=== PATIENT | male | born 1950 | race Caucasian/White ===

== ENCOUNTER 2016-08-07 11:47 | Outpatient (CLI) | payer OTHER ==
[2016-08-07 12:06] LABS: BASOPHILS # (AUTO) 0.1 K/uL (0-0.2); EOSINOPHILS # (AUTO) 0.7 K/ul (0.0-0.7); EOSINOPHILS % (AUTO) 9.4 % (0.0-7.0); HEMATOCRIT 45.9 % (42.0-52.0); HEMOGLOBIN 15.9 g/dl (14.0-18.0); IMMATURE GRANULOCYTE % (AUTO) 0.1 % (0.0-5.0); LYMPHOCYTES # (AUTO) 2.8 K/uL (0.60-3.4); LYMPHOCYTES % (AUTO) 38.6 (10.0-50.0); MEAN CORPUSCULAR HGB CONC 34.6 (31.8-35.4); MEAN CORPUSCULAR VOLUME 89.5 fl (80.0-94.0); MONOCYTES # (AUTO) 0.8 K/uL (0.4-2.0); MONOCYTES % (AUTO) 10.7 (0-10); NEUTROPHILS # (AUTO) 2.9 K/ul (2.0-6.9); NEUTROPHILS % (AUTO) 40.2; PLATELET COUNT 234 10^3/uL (140-440); RED BLOOD COUNT 5.13 10^6/ul (4.70-6.10); WHITE BLOOD COUNT 7.21 K/ul (4.2-10.2)
[2016-08-07 12:26] LABS: ALBUMIN/GLOBULIN RATIO 0.98; BILIRUBIN,TOTAL 0.47 mg/dL (0.00-1.20); BUN/CREATININE RATIO 16.47; CALCIUM 9.5 mg/dL (8.2-10.2); CHOL/HDL RATIO 3.9 (4.5-6.4); CREATININE 0.85 mg/dL (0.60-1.10); TOTAL PROTEIN 8.1 g/dL (5.8-8.1)
== END 2016-08-07 11:48 | disposition home or self-care (01) ==
LOC: CAR 11:47
PROVIDERS: ATTEND Family Medicine
DX: E78.5 Hyperlipidemia, unspecified (principal); Z01.810 Encounter for preprocedural cardiovascular examination; Z01.812 Encounter for preprocedural laboratory examination
CPT/HCPCS: 36415; 80053; 80061; 85025; 93005; 93010

== ENCOUNTER 2018-07-06 10:56 | Outpatient (CLI) ==
--- NOTE | 2018-07-07 05:46 | DI ---
EXAM: Chest, two views, 07/06/2018 HISTORY: Chronic obstructive pulmonary disease COMPARISON: 12/15/2014 FINDINGS / IMPRESSION: Emphysematous configuration of the chest. The heart size appears stable. No focal pulmonary consolidation. No pleural effusion or pneumothorax. No acute cardiopulmonary process.
== END 2018-07-06 10:57 | disposition home or self-care (01) ==
LOC: RAD 10:56
PROVIDERS: ATTEND Family Medicine
DX: E78.5 Hyperlipidemia, unspecified (principal); J44.9 Chronic obstructive pulmonary disease, unspecified
CPT/HCPCS: 36415; 80061; 82565; 82947; 84520

== ENCOUNTER 2018-08-28 13:35 | Outpatient (CLI) | END 2018-08-28 13:36 | disposition home or self-care (01) | LOC: LAB 13:35 | PROVIDERS: ATTEND Family Medicine | DX: J44.9 Chronic obstructive pulmonary disease, unspecified (principal); J20.9 Acute bronchitis, unspecified | CPT/HCPCS: 87070 ==